=== PATIENT | female | born 1970 | race African-American/Black ===

== ENCOUNTER 2017-01-29 10:08 | Observation (INO) ==
[2017-01-29] MEDS ORDERED: HYDROmorphone 2 MG/1 ML VIAL IV STA (11:08)
[2017-01-29] MEDS ORDERED: ONDANSETRON 4 MG/2 ML VIAL IV STA (11:08)
[2017-01-29 11:14] LABS: Basophils % 0.4 % (0.0-0.8); Eosinophils # 0.2 10*3/uL (0.0-0.87); Eosinophils % 2.1 % (0.00-10.9); Hematocrit 36.3 VOL% (35.7-47.0); Hemoglobin 13.4 GM/DL (12.0-16.0); Immature Granulocytes % 0.3 %; Immature Granulocytes Absolute 0.02 #; Lymphocytes % 27.8 % (21.3-54.2); Mean Corpuscular HGB Conc 36.9 GM/DL (32-36); Mean Corpuscular Hemoglobin 34 PG (27-34); Mean Corpuscular Volume 92.8 FL (87-102); Mean Platelet Volume 11.4 FL (9.6-12.0); Monocytes # 0.4 10*3/uL (0.11-0.8); Monocytes % 6.2 % (1.7-12.7); Neutrophils # 4.5 10*3/uL (1.4-7.4); Neutrophils % 63.2 % (38.7-73.9); Platelet Count 279 T/CUMM (130-400); Red Blood Count 3.91 MC/CUMM (3.8-5.5); Red Cell Distribution Width 11.5 % (9.3-17.3); White Blood Count 7.1 T/CUMM (4-12)
[2017-01-29] MEDS ORDERED: ONDANSETRON 4 MG/2 ML VIAL ONE (11:17)
[2017-01-29] MEDS ORDERED: HYDROmorphone 2 MG/1 ML VIAL ONE (11:18)
[2017-01-29 11:27] LABS: Partial Thromboplastin Time 25.1 SECS (0-40)
[2017-01-29 11:40] LABS: Albumin 3.8 G/DL (3.4-5.0); Bilirubin,Total 0.6 MG/DL (0.2-1.0); Calcium 9.5 MG/DL (8.5-10.1); Osmolality,Calculated 285.4 MOS/KG (273-304); Potassium 3.7 MMOL/L (3.5-5.1); Total Protein 7.9 G/DL (6.4-8.3)
--- NOTE | 2017-01-29 11:45 | Emergency Department Note ---
Shawna Caldera Brittany, am scribing for, and in the presence of, Lillie Aguilar DO 11: 13. IJeff Debra, DO, personally performed the services described in this documentation, ascribed by Pily Matos in my presence, and it is both accurate and complete . Arrival - Arrival Chief Complaint: Abdominal / Flank Pain Stated Complaint: rt side pain/nausea ED Nursing Triage Note: Patient to triage with c/o right side pain with n/v. Patient states she was seen here Wednesday for the samething and it is getting worse. Mode of Arrival: Ambulatory Limitations: No Limitations Source: Patient - History of Present Illness HPI Narrative: This is a 47 y/o black female,who presents to the ED with c/o severe abdominal pain which started last week. She localizes the abdominal pain to the right upper and lower quadrants. She states she was seen last week here for the same complaints but the pain has now increased. She reports she had a CT of her abdominal at this time, which showed her appendix was inflamed. She notes the last time she ate was yesterday secondary to nausea and vomiting. She reports a subjective fever. Pt has no other complaints/pain in the ED at this time. Pt has a PMHx of HTN and NIDDM. Pt has had a hysterecotomy and cholecystectomy. PT denies a family medical Hx. Pt denies a social hx. Onset (ago): week(s) (Started last week) Consistency: constant Severity: severe, similar to previous episodes Allergies/Adverse Reactions: Allergies Allergy/AdvReac Type Severity Reaction Status Date / Time Sulfa (Sulfonamide Allergy ANAPHYLAXIS Verified 01/29/17 10:26 Antibiotics) Home Medications: Home Medications Medication Instructions Recorded Confirmed Type Amlodipine Besylate [Amlodipine 10 mg PO QAM 01/29/17 01/29/17 History Besylate] Ciprofloxacin HCl [Ciprofloxacin 500 mg PO BID 01/29/17 01/29/17 History Tab] Liraglutide [Victoza 2-Nacho] 0.6 mg SUBCUT QAM 01/29/17 01/29/17 History Tramadol HCl [Tramadol Tab] 50 mg PO TID PRN 01/29/17 01/29/17 History glipiZIDE [Glipizide] 10 mg PO BID 01/29/17 01/29/17 History metroNIDAZOLE TAB [Flagyl Cap/Tab] 500 mg PO TID 01/29/17 01/29/17 History Review of System - Review of System 12 point system: reviewed and no additional remarkable complaints except as stated - Review of System Constitutional: Present: fever (Subjective fever) Gastrointestinal: Present: abdominal pain, nausea, vomiting Medical,Surgical,& Family Hx - Medical History Cardio: History of: Hypertension Endocrine: History of: Diabetes Mellitus (NIDDM) - Surgical History Abdominal Surgeries: Surgical HX of: Cholecystectomy Reproductive Surgeries: Surgical HX of;: Hysterectomy - Social History Smoking Status: Never smoker Frequency of Alcohol Use: None Type of Drug Use: None Exam Vital Signs: Vital Signs Temperature 98.1 F 01/29/17 10:40 Pulse Rate 67 01/29/17 10:40 Respiratory Rate 18 01/29/17 10:40 Blood Pressure 158/103 01/29/17 10:40 O2 Sat by Pulse Oximetry 99 01/29/17 10:24 - General General appearance: alert, in no apparent distress - Head Head exam: Present: atraumatic, normocephalic, normal inspection - Eye Eye exam: Present: normal appearance, PERRL, EOMI. Absent: conjunctival injection, nystagmus - ENT ENT exam: Present: normal exam, mucous membranes moist - Neck Neck exam: Present: normal inspection, full ROM, trachea midline. Absent: tenderness - Chest Chest inspection: Present: normal inspection, symmetric chest wall rise. Absent : tenderness - Respiratory Respiratory exam: Present: normal lung sounds bilaterally. Absent: respiratory distress - Cardiovascular Cardiovascular exam: Present: regular rate, normal rhythm, normal heart sounds. Absent: murmur - Abdominal Exam Abdominal exam: Present: soft, tenderness, normal bowel sounds. Absent: distention (Severe right upper and lower quadrant tenderness), guarding, rebound , rigidity - Rectal Exam Rectal exam: Present: deferred - Extremities Exam Extremities exam: Present: normal inspection, full ROM, normal capillary refill. Absent: tenderness - Back Exam Back exam: Present: normal inspection, full ROM. Absent: tenderness, muscle spasm, rashes - Neurological Exam Neurological exam: Present: alert, oriented X3, CN II-XII intact - Psychiatric Psychiatric exam: Present: other (Tearful). Absent: normal affect, normal mood , depressed, agitated, anxious - Skin Skin exam: Present: warm, dry, intact, normal color. Absent: pallor, mottled Course Course Narrative: Spoke with hospitalist and they will admit patient who is stable at this time. Patient will be put on IV Cipro. Pain will be controlled. Results - Labs CBC & BMP: 01/29/17 10:56 01/29/17 10:56 Lab Results: I have reviewed the patients labs Labs: Laboratory Tests 01/29/17 10:56 WBC 7.1 RBC 3.91 Hgb 13.4 Hct 36.3 MCV 92.8 MCH 34 MCHC 36.9 H RDW 11.5 Plt Count 279 MPV 11.4 Neut % (Auto) 63.2 Lymph % (Auto) 27.8 [place] % (Auto) 6.2 Eos % (Auto) 2.1 Baso % (Auto) 0.4 Neut # (Auto) 4.5 Lymph # (Auto) 2.0 [place] # (Auto) 0.4 Eos # (Auto) 0.2 Baso # (Auto) 0.0 Immature Gran % 0.3 Nucleated RBC % 0.0 Immature Gran # 0.02 Nucleated RBCs # 0.00 Immature Plt Fraction 0.0 - Diagnostic Findings Procedure: CT Abdomen and Pelvis: report reviewed by me (. Slight worsening of epiploic appendagitis2. Mild diverticulitiosis 3. Prior cholecystectomy. ) Disposition Clinical Impression: Epiploic appendagitis Case discussed with: patient Disposition: Still a Patient Condition: Stable Time of Disposition: 14:20
--- NOTE | 2017-01-29 12:23 | CT Report ---
History is abdominal pain Comparison 01/25/2017 100 cc Omni 350 utilized No focal defects seen in the liver, spleen, pancreas, or adrenals. Several up to 1 cm hypodensities in the right kidney bilaterally. To be a mildly less dense than fluid however Hounsfield unit measurements are most consistent with tiny cysts as opposed to tiny angiomyolipomas. Patient is status post cholecystectomy No enlarged retroperitoneal nodes seen Bowel is unopacified There are mild diverticuli throughout the colon. Again seen is a round, 2.5 cm area of inflammation and fat density anterior to the right colon. This is slightly more pronounced than on the prior study. Pelvis: Appendix is normal in size. No significant free fluid or focal inflammatory changes are seen. Mild sigmoid diverticuli present. Impression: 1. Slight worsening of epiploic appendagitis 2. Mild diverticulosis 3. Prior cholecystectomy The CT exam was performed using one or more of the following dose reduction techniques: Automated exposure control, adjustment of the mA and/or kV according to patient size, or use of iterative reconstruction technique. PROCEDURE INTERPRETED AT [facility] DEPARTMENT OF RADIOLOGY Final Report Signed by: Dr. Veronique Spain
[2017-01-29] MEDS ORDERED: CIPROFLOXACIN INJ 400 MG in PREMIX 1 EACH IV STA (14:17)
[2017-01-29] MEDS ORDERED: CIPROFLOXACIN 400 MG/200 ML PREMIX IV ONE (14:21)
--- NOTE | 2017-01-29 14:45 | Hospitalist History & Physical ---
<Leonila Alvarez - Last Filed: 01/29/17 14:30> Assessment and Plan - Time spent with patient Time spent with patient: Greater than 30 minutes (1) Epiploic appendagitis Status: Acute Assessment and plan: No temperature, no elevation in WBC; no elevation in liver function panel. Admit for observation. Start IV hydration. IV antibiotics. Pain medications. Will discuss with Dr Goddard for further recommendations with care. Current Visit: Yes (2) Abdominal pain Status: Acute Assessment and plan: Right sided upper quadrant. Cholecystectomy (1999). Liver function results within normal. Abd CT shows slight worsening of epiploic appendagitis; mild diverticulosis; prior cholcystectomy. Admit for observation. repeat a.m. labs. start IV fluids and antibiotics. Current Visit: No History of Present Illness Chief complaint: abdominal pain History of present illness: Ms. Crane is a 47 year old black female with PMHx HTN, DM; presented to the ED for c/o severe abdominal pain since Wednesday. She verbalizes the pain is more right upper quadrant but generalized pain and soreness throughout abdomen. She verbalized nausea and vomited x1. She denies any blood in vomitus and no blood in last bowel movement. She presented to the ED on 01/25/17 for same pain without any relief. Denies shortness of breath, chest pain, fever, or chills. SHx: hysterectomy, cholecystectomy. She denies smoking, alcohol intake or drug use. ALLERGIC: Sulfa IN ED: CT Abd/pelvis: Slight worsening of epiploic appendagitis; mild diverticulosis; prior cholecystectomy. LABS: WBC 7.1; H&H 13.4 & 36.3; Electrolytes within normal range. Glucose 222. After discussion with Dr Harkins in the ED and Dr Goddard with [facility], it was agreed to admit for observation and further evaluation of abdominal pain. Home Medications Medication Instructions Recorded Confirmed Type Amlodipine Besylate [Amlodipine 10 mg PO QAM 01/29/17 01/29/17 History Besylate] Ciprofloxacin HCl [Ciprofloxacin 500 mg PO BID 01/29/17 01/29/17 History Tab] Liraglutide [Victoza 2-Nacho] 0.6 mg SUBCUT QAM 01/29/17 01/29/17 History Tramadol HCl [Tramadol Tab] 50 mg PO TID PRN 01/29/17 01/29/17 History glipiZIDE [Glipizide] 10 mg PO BID 01/29/17 01/29/17 History metroNIDAZOLE TAB [Flagyl Cap/Tab] 500 mg PO TID 01/29/17 01/29/17 History Allergies Allergy/AdvReac Type Severity Reaction Status Date / Time Sulfa (Sulfonamide Allergy ANAPHYLAXIS Verified 01/29/17 10:26 Antibiotics) Medical,Surgical,& Family Hx - Medical History Cardio: History of: Hypertension Endocrine: History of: Diabetes Mellitus (NIDDM) - Surgical History Abdominal Surgeries: Surgical HX of: Cholecystectomy Reproductive Surgeries: Surgical HX of;: Hysterectomy - Social History Smoking Status: Never smoker Frequency of Alcohol Use: None Type of Drug Use: None Marital Status: Single Lives With:: ruby lives with her Functional capacity: independent ambulation 12 point system: reviewed and no additional remarkable complaints except as stated Exam - Constitutional Vitals: Period Temp Pulse Resp BP Sys/Knight Pulse Ox Last 24 Hr 98.1 F-98.1 F 67-67 18-18 158-158/103-103 99 General appearance: normal weight, no acute distress - Head Head exam: Present: normal inspection - Eye Eye exam: Present: EOMI Pupils: Present: SHAYNA - Neck Neck exam: Present: normal inspection. Absent: thyromegaly - Respiratory Respiratory exam: Present: clear to auscultation bilaterally. Absent: rhonchi, stridor, wheezes - Cardiovascular Cardiovascular exam: Present: regular rate and rhythm - GI/Abdominal GI/Abdominal exam: Present: normal bowel sounds, tenderness (right sided), soft. Absent: guarding, rebound - Extremities Exam Extremities exam: Present: full ROM. Absent: edema - Psychiatric Psychiatric exam: Present: normal affect, normal mood. Absent: agitated, anxious - Skin Skin exam: Present: normal color, warm, dry Results - Labs CBC & BMP: 01/29/17 10:56 01/29/17 10:56 Lab Results: I have reviewed the past 24 hour labs - Diagnostic Findings Procedure: CT Abdomen and Pelvis: report reviewed by me (Slight worsening of epiploic appendagitis; mild diverticulosis; prior cholecystectomy) <Anara,Mikey - Last Filed: 01/29/17 15:14> History of Present Illness History of present illness: Ms. White is a 47 year old female Exam - Constitutional Vitals: Period Temp Pulse Resp BP Sys/Knight Pulse Ox Last 24 Hr 98.1 F-98.1 F 59-67 18-18 158-188/103-109 95-99 Results - Labs CBC & BMP: 01/29/17 10:56 01/29/17 10:56
[2017-01-29] MEDS ORDERED: DEXTROSE 50% 25 GM/50 ML VIAL IV PRN (14:56)
[2017-01-29] MEDS ORDERED: GLUCAGON 1 MG VIAL IM PRN (14:56)
[2017-01-29] MEDS ORDERED: SODIUM CHLORIDE 0.9% 1,000 ML IV SCH (15:00)
[2017-01-29] MEDS ORDERED: ACETAMINOPHEN 325 MG TABLET PO PRN (15:09)
[2017-01-29] MEDS ORDERED: SODIUM CHLORIDE 0.45% 1,000 ML IV SCH (15:30)
[2017-01-29] MEDS: MORPHINE 2 MG/1 ML SYRINGE IV PRN ×2 (17:53→21:55)
[2017-01-29] MEDS: ONDANSETRON 4 MG/2 ML VIAL IV PRN (17:59)
[2017-01-29] MEDS: INSULIN LISPRO 100 UNIT/ML SUBCUT SCH (18:00)
[2017-01-29 19:41] LABS: Apearance,Urine CLEAR (Clear); Bilirubin,Urine Negative (Negative); Blood, Urine Negative (Negative); Glucose,Urine (UA) 150 mg/dL (Negative); Hyaline Casts,Urine 1 /LPF (0-3); Ketones,Urine Negative (Negative); Nitrite,Urine Negative (Negative); Protein,Urine Negative; RBC,Urine <1 /HPF (0-4); Renal Epithelial Cells,Urine Occasional /HPF (<1); Squamous Epithelial Cell,Urine Occasional /HPF (0-10); Urine Color Straw (Yellow); Urine Specific Gravity 1.013 (1.001-1.035); Urine Urobilinogen < 2.0 EU/DL (0.2-1.0); WBC,Urine 2 /HPF (0-6)
[2017-01-29] MEDS: glipiZIDE 10 MG TABLET PO SCH (21:50)
[2017-01-30 05:19] LABS: Basophils % 0.3 % (0.0-0.8); Eosinophils # 0.3 10*3/uL (0.0-0.87); Eosinophils % 3.8 % (0.00-10.9); Hematocrit 33.8 VOL% (35.7-47.0); Hemoglobin 12.1 GM/DL (12.0-16.0); Immature Granulocytes % 0.1 %; Immature Granulocytes Absolute 0.01 #; Lymphocytes # 2.7 10*3/uL (1.4-4.0); Lymphocytes % 37.4 % (21.3-54.2); Mean Corpuscular HGB Conc 35.8 GM/DL (32-36); Mean Corpuscular Hemoglobin 34 PG (27-34); Mean Corpuscular Volume 93.6 FL (87-102); Mean Platelet Volume 11.5 FL (9.6-12.0); Monocytes # 0.5 10*3/uL (0.11-0.8); Monocytes % 7.1 % (1.7-12.7); Neutrophils # 3.7 10*3/uL (1.4-7.4); Neutrophils % 51.3 % (38.7-73.9); Platelet Count 271 T/CUMM (130-400); Red Blood Count 3.61 MC/CUMM (3.8-5.5); Red Cell Distribution Width 11.3 % (9.3-17.3); White Blood Count 7.3 T/CUMM (4-12)
[2017-01-30 05:31] LABS: Calcium 9.2 MG/DL (8.5-10.1); Magnesium 1.8 MG/DL (1.8-2.4); Osmolality,Calculated 278.3 MOS/KG (273-304); Potassium 3.6 MMOL/L (3.5-5.1)
[2017-01-30] MEDS: MORPHINE 2 MG/1 ML SYRINGE IV PRN ×3 (06:35→22:13)
[2017-01-30] MEDS: INSULIN LISPRO 100 UNIT/ML SUBCUT SCH ×2 (08:22→17:51)
[2017-01-30] MEDS: ONDANSETRON 4 MG/2 ML VIAL IV PRN (08:46)
[2017-01-30] MEDS: glipiZIDE 10 MG TABLET PO SCH ×2 (09:59→20:50)
[2017-01-30] MEDS: amLODIPine 10 MG TABLET PO SCH (09:59)
[2017-01-30] MEDS: PANTOPRAZOLE 40 MG TABLET PO SCH (10:00)
--- NOTE | 2017-01-30 16:21 | Hospitalist Progress Note ---
Hospitalist: Subjective Interval history: 47 year old black female with PMHx HTN, DM; presented to the ED for c/o severe abdominal pain. She was diagnosed with epiploic appendagitis based on CT abdomen findings. She has mild nausea, still has abdominal pain but she reports is better compared to last couple days. Exam - Constitutional Vitals: Period Temp Pulse Resp BP Sys/Knight Pulse Ox Last 24 Hr 97.4 F-98.4 F 67-75 16-20 115-128/69-83 94-98 Exam: General: No Acute Distress HEENT: Normocephalic, atraumatic, Extra ocular movements intact Neck: Supple, No JVD Chest: Clear to auscultation B/L CV: S1 + S2 audible without murmur, gallop or rub Abd: soft, mild right-sided tenderness, Non-distended, BS + Ext: No edema Skin: No purpura, bruising or rash Rheumatologic: No Joint deformities Neurologic: Strength 5/5 all extremities, no gross sensory deficits Results - Labs CBC & BMP: 01/30/17 02:56 01/30/17 02:56 - Impressions Epiploic appendagitis Status: Acute Assessment and plan: This is usually a benign condition. Continue IV hydration, as needed pain medication. Current Visit: Yes Essential hypertension Status: Chronic Assessment and plan: Controlled on Norvasc 10 mg continue Current Visit: Yes Diabetes mellitus type 2 Status: Chronic Assessment and plan: This is controlled on glipizide, she is taking her own Victoza as this is nonformulary Current Visit: Yes
[2017-01-30] MEDS ORDERED: GLUCAGON 1 MG VIAL IM PRN (16:23)
[2017-01-30] MEDS ORDERED: DEXTROSE 50% 25 GM/50 ML VIAL IV PRN (16:23)
[2017-01-31] MEDS: ONDANSETRON 4 MG/2 ML VIAL IV PRN (07:55)
[2017-01-31] MEDS: MORPHINE 2 MG/1 ML SYRINGE IV PRN (08:00)
[2017-01-31] MEDS: INSULIN LISPRO 100 UNIT/ML SUBCUT SCH ×2 (08:01→17:55)
[2017-01-31] MEDS: amLODIPine 10 MG TABLET PO SCH (09:06)
[2017-01-31] MEDS: PANTOPRAZOLE 40 MG TABLET PO SCH (09:06)
[2017-01-31] MEDS: glipiZIDE 10 MG TABLET PO SCH ×2 (09:06→21:21)
[2017-01-31] MEDS ORDERED: KETOROLAC 30 MG/1 ML VIAL IV ONE (10:48)
[2017-01-31] MEDS: KETOROLAC 15 MG/1 ML VIAL IV SCH ×3 (11:30→23:10)
--- NOTE | 2017-01-31 11:31 | Hospitalist Progress Note ---
Assessment and Plan - Time spent with patient Time spent with patient: Less than 30 minutes (1) Diabetes Status: Acute Assessment and plan: 47-year-old -[place] female with history of diabetes and hypertension admitted by the hospitalist service on 01/29/2017 with persistent abdominal pain associated with nausea due to epiploic appendicitis. This should resolve on its own without antibiotics. This usually responds well to a nonnarcotic anti- inflammatory like Toradol. She does has normal kidney function so will start scheduled doses of IV Toradol every 6 hours. She can continue to use the Zofran as needed as needed for the nausea. But this should improve as her pain improves. Her blood sugars are under control with current regimen. She did have a hemoglobin A1c of 8.7. Her blood pressures are under good control. We will go ahead and get diabetes educators to see her while she is here. If her pain is under control with the Toradol she can be DC'd home tomorrow with Zofran , Toradol, and [place] use as needed. Dr. Simmons will see and examine patient and further recommendations to follow. Current Visit: Yes (2) Nausea Status: Acute Current Visit: Yes (3) Abdominal pain Status: Acute Current Visit: No (4) Epiploic appendagitis Status: Acute Current Visit: No Hospitalist: Subjective Interval history: Patient states her pain may be somewhat better but she is continuing to have some nausea that will subside with Zofran prior to eating. She is taking [place] and morphine. Exam - Constitutional Vitals: Period Temp Pulse Resp BP Sys/Knight Pulse Ox Last 24 Hr 96.9 F-98.0 F 62-84 16-20 101-135/58-83 93-100 Exam: 47-year-old -[place] female, no acute distress, alert and oriented Chest clear CV regular rate and rhythm Abdomen soft, tender to palpation right flank, no peritoneal signs or rebound Extremities no edema Results - Labs CBC & BMP: 01/30/17 02:56 01/30/17 02:56 Lab Results: I have reviewed the past 24 hour labs
[2017-02-01] MEDS: KETOROLAC 15 MG/1 ML VIAL IV SCH ×2 (05:21→10:38)
[2017-02-01] MEDS: INSULIN LISPRO 100 UNIT/ML SUBCUT SCH (07:12)
[2017-02-01] MEDS: amLODIPine 10 MG TABLET PO SCH (08:12)
[2017-02-01] MEDS: glipiZIDE 10 MG TABLET PO SCH (08:12)
[2017-02-01] MEDS: PANTOPRAZOLE 40 MG TABLET PO SCH (08:12)
[2017-02-01] MEDS ORDERED: VICTOZA (Liraglutide) 0.6 MG SUBCUT SCH (09:00)
[2017-02-01 12:07] VITALS: BP 119/65
[2017-02-01] MEDS: ONDANSETRON 4 MG/2 ML VIAL IV PRN (12:30)
[2017-02-01] MEDS ORDERED: NAPROXEN 500 MG TABLET PO PRN (13:57)
--- NOTE | 2017-02-01 14:03 | Hospitalist Progress Note ---
Hospitalist: Subjective Interval history: 47 year old black female with PMHx HTN, DM; presented to the ED for c/o severe abdominal pain. She was diagnosed with epiploic appendagitis based on CT abdomen findings, which is mostly a benign condition and tends to resolve spontaneously. She was provided pain management while in the hospital, and her pain is under control with the combination of narcotics and NSAIDs. Her pain has improved significantly, she is tolerating diet. She has reached maximal hospital benefit and being discharged home in an improved and stable condition. Work excuse has been provided with 1 week off after discharge from the hospital. Prescriptions were also provided . She will continue to follow-up with her primary care physician in 7-10 days which I recommended to her. Total discharge time 20 minutes. Exam - Constitutional Vitals: Period Temp Pulse Resp BP Sys/Knight Pulse Ox Last 24 Hr 97.6 F-98.4 F 69-83 18-20 112-122/61-71 92-99 Results - Labs CBC & BMP: 01/30/17 02:56 01/30/17 02:56
--- NOTE | 2017-02-01 14:06 | Discharge Summary ---
Hospital Course - Hospital Course Hospital Course: 47 year old black female with PMHx HTN, DM; presented to the ED for c/o severe abdominal pain. She was diagnosed with epiploic appendagitis based on CT abdomen findings, which is mostly a benign condition and tends to resolve spontaneously. She was provided pain management while in the hospital, and her pain is under control with the combination of narcotics and NSAIDs. Her pain has improved significantly, she is tolerating diet. She has reached maximal hospital benefit and being discharged home in an improved and stable condition. Work excuse has been provided with 1 week off after discharge from the hospital. Prescriptions were also provided . She will continue to follow-up with her primary care physician in 7-10 days which I recommended to her. Total discharge time 20 minutes. - Time spent with patient Time with patient DS: Less than 30 minutes Discharge Plan - Discharge Data Condition at Discharge: Stable Discharge Diet: advance to your usual diet Activity: resume usual activities as tolerated Hygiene: no restrictions Weight Bearing at Discharge: full weight bearing Driving: no restrictions Contact your physician if you experience:: pain uncontrolled by pain medications - Discharge Medications New Naproxen [Naprosyn Tab] 500 mg PO BID PRN #14 tablet PRN Reason: Abdominal Pain Pantoprazole Tab [Protonix Tab] 40 mg PO DAILY #14 tablet HYDROcodone/ACETAMIN 7.5-325 [Erin 7.5-325] 1 tablet PO Q4H PRN #30 tablet PRN Reason: Pain Moderate (4-7) Continue Tramadol HCl [Tramadol Tab] 50 mg PO TID PRN PRN Reason: Pain glipiZIDE [Glipizide] 10 mg PO BID Liraglutide [Victoza 2-Nacho] 0.6 mg SUBCUT QAM Amlodipine Besylate 10 mg PO QAM Discontinued Ciprofloxacin HCl [Ciprofloxacin Tab] 500 mg PO BID metroNIDAZOLE TAB [Flagyl Cap/Tab] 500 mg PO TID - Follow Up or Referral - Forms/Instructions Exam - Constitutional Vitals: Period Temp Pulse Resp BP Sys/Knight Pulse Ox Last 24 Hr 97.6 F-98.4 F 69-83 18-20 112-122/61-71 92-99 Exam: General: No Acute Distress HEENT: Normocephalic, atraumatic, Extra ocular movements intact Neck: Supple, No JVD Chest: Clear to auscultation B/L CV: S1 + S2 audible without murmur, gallop or rub Abd: soft, NT, Non-distended, BS + Ext: No edema Skin: No purpura, bruising or rash Rheumatologic: No Joint deformities Neurologic: Strength 5/5 all extremities, no gross sensory deficits Discharge Results Labs on day of discharge: Labs from last 24 hours 02/01/17 02/01/17 01/31/17 10:46 07:07 15:52 POC Glucose 202 H 121 H 292 H DS: Provider Date of admission: 01/29/17 14:15 Primary care physician: . No PCP Attending physician on admission: Mikey Goddard MD Consults: 01/29/17 20:14 Consult to Dietitian [CONS] Routine Reason for Dietitian: Other Consult to Pastoral Services [CONS] Routine Comment: Pastoral Screen: Request Manager Strategic Visit Pastoral Screen Source of Request: Patient 01/31/17 11:35 Consult to Diabetes Center, Educator [CONS] Routine Reason for Needlemaker: Diabetes Education Discharging clinician: Juana Simmons MD
== END 2017-02-01 15:39 | disposition home or self-care (01) ==
LOC: N.EDINP 10:08 → N.ED 10:08 → SUATTDRO 14:15 → N.EDINP 14:53 → N.3E 15:04
PROVIDERS: ADMIT Internal Medicine; ATTEND Hospitalist

== ENCOUNTER 2018-11-16 11:49 | Observation (INO) ==
[2018-11-16 13:47] LABS: Basophils % 0.4 % (0.0-0.8); Eosinophils # 0.2 10*3/uL (0.0-0.87); Eosinophils % 2.2 % (0.00-10.9); Hematocrit 41.4 VOL% (35.7-47.0); Hemoglobin 14.2 GM/DL (12.0-16.0); Immature Granulocytes % 0.3 %; Immature Granulocytes Absolute 0.02 #; Lymphocytes # 3.2 10*3/uL (1.4-4.0); Lymphocytes % 43.8 % (21.3-54.2); Mean Corpuscular HGB Conc 34.3 GM/DL (32-36); Mean Platelet Volume 12.4 FL (9.6-12.0); Monocytes % 5.6 % (1.7-12.7); Neutrophils % 47.7 % (38.7-73.9); Platelet Count 240 T/CUMM (130-400); Red Blood Count 4.36 MC/CUMM (3.8-5.5); White Blood Count 7.3 T/CUMM (4-12)
[2018-11-16] MEDS ORDERED: ASPIRIN CHEW 81 MG TABLET PO STA (13:49)
[2018-11-16 14:01] LABS: Albumin 3.9 G/DL (3.4-5.0); Bilirubin,Total 0.5 MG/DL (0.2-1.0); Calcium 9.5 MG/DL (8.5-10.1); Osmolality,Calculated 287.1 MOS/KG (273-304); Total Protein 7.3 G/DL (6.4-8.3)
[2018-11-16 14:19] LABS: INR 0.9; PT Patient Result 10.3 SECS; Partial Thromboplastin Time 23.3 SECS (0-40)
[2018-11-16] MEDS ORDERED: ALUM/MAG/SIMETH/LIDO VISC 1:1 30 ML BOTTLE PO ONE (14:41)
[2018-11-16] MEDS ORDERED: ALUM/MAG/SIMETH/LIDO VISC 1:1 30 ML BOTTLE PO STA (14:44)
[2018-11-16] MEDS ORDERED: KETOROLAC 30 MG/1 ML VIAL IV STA (15:00)
[2018-11-16] MEDS ORDERED: amLODIPine 10 MG TABLET ONE (15:39)
[2018-11-16] MEDS ORDERED: amLODIPine 5 MG TABLET PO STA (15:40)
[2018-11-16] MEDS ORDERED: BISACODYL 5 MG TABLET PO PRN (15:50)
[2018-11-16] MEDS ORDERED: oxyCODONE/ACETAMINOPHEN 5-325 MG TABLET PO PRN (15:50)
[2018-11-16] MEDS ORDERED: INSULIN LISPRO 100 UNIT/ML SUBCUT ONE (15:50)
[2018-11-16] MEDS ORDERED: ONDANSETRON 4 MG/2 ML VIAL IV PRN (15:50)
[2018-11-16] MEDS ORDERED: POTASSIUM CHLORIDE 20 MEQ TABLET PO PRN ×2 (15:50)
[2018-11-16] MEDS ORDERED: MAGNESIUM SULF RIDER 4 GM in PREMIX 1 EACH IV PRN (15:50)
[2018-11-16] MEDS ORDERED: ACETAMINOPHEN 325 MG TABLET PO PRN (15:50)
[2018-11-16] MEDS ORDERED: MAGNESIUM SULF RIDER 2 GM in PREMIX 1 EACH IV PRN (15:50)
[2018-11-16 16:41] LABS: Barbiturates Screen,Urine Negative (Negative); Benzodiazepines Screen,Urine Negative (Negative); Cannabinoid Screen,Urine Negative (Negative); Opiate Screen,Urine Negative (Negative); Phencyclidine Screen,Urine Negative (Negative)
[2018-11-16 17:07] LABS: Risk Ratio 4.71; VLDL CHOLESTEROL 57.2 MG/DL
[2018-11-16] MEDS: MORPHINE 4 MG/1 ML VIAL IV PRN (18:09)
[2018-11-16] MEDS: CARVEDILOL 6.25 MG TABLET PO SCH (20:43)
[2018-11-16] MEDS: FAMOTIDINE 20 MG TABLET PO SCH (20:44)
[2018-11-16] MEDS: INSULIN LISPRO 100 UNIT/ML SUBCUT SCH (20:45)
[2018-11-16] MEDS ORDERED: ATORVASTATIN 20 MG TABLET PO SCH (21:00)
[2018-11-16] MEDS ORDERED: INSULIN GLARGINE 100 UNIT/ML SUBCUT SCH (21:00)
[2018-11-17 04:44] LABS: Basophils % 0.4 % (0.0-0.8); Eosinophils # 0.2 10*3/uL (0.0-0.87); Eosinophils % 3.1 % (0.00-10.9); Hematocrit 39.8 VOL% (35.7-47.0); Hemoglobin 13.8 GM/DL (12.0-16.0); Immature Granulocytes % 0.3 %; Immature Granulocytes Absolute 0.02 #; Lymphocytes # 3.6 10*3/uL (1.4-4.0); Lymphocytes % 46.4 % (21.3-54.2); Mean Corpuscular HGB Conc 34.7 GM/DL (32-36); Mean Corpuscular Volume 93.9 FL (87-102); Mean Platelet Volume 12.1 FL (9.6-12.0); Monocytes % 4.8 % (1.7-12.7); Platelet Count 234 T/CUMM (130-400); Red Blood Count 4.24 MC/CUMM (3.8-5.5); Red Cell Distribution Width 11.1 % (9.3-17.3); White Blood Count 7.7 T/CUMM (4-12)
[2018-11-17 05:20] LABS: Albumin 3.4 G/DL (3.4-5.0); Bilirubin,Total 0.6 MG/DL (0.2-1.0); Calcium 9.2 MG/DL (8.5-10.1); Osmolality,Calculated 285.5 MOS/KG (273-304); Total Protein 6.9 G/DL (6.4-8.3)
[2018-11-17] MEDS ORDERED: ASPIRIN EC 81 MG TABLET PO SCH (09:00)
[2018-11-17] MEDS ORDERED: amLODIPine 10 MG TABLET PO SCH (09:00)
[2018-11-17] MEDS: MORPHINE 4 MG/1 ML VIAL IV PRN (09:17)
[2018-11-17] MEDS: INSULIN LISPRO 100 UNIT/ML SUBCUT SCH ×3 (09:18→16:47)
[2018-11-17] MEDS ORDERED: POTASSIUM CHLORIDE RIDER 10 MEQ in PREMIX 1 EACH IV PRN ×2 (10:17→10:18)
[2018-11-17] MEDS ORDERED: MAGNESIUM SULF RIDER 2 GM in PREMIX 1 EACH IV PRN ×2 (10:17→10:18)
[2018-11-17] MEDS ORDERED: DIAZEPAM 5 MG TABLET PO ONE (10:18)
[2018-11-17] MEDS ORDERED: diphenhydrAMINE CAP 25 MG CAPSULE PO ONE (10:18)
[2018-11-17] MEDS ORDERED: methylPREDNISolone SOD SUC 125 MG/2 ML VIAL IV ONE (10:20)
[2018-11-17] MEDS ORDERED: SODIUM CHLORIDE 0.9% 1,000 ML IV SCH (10:30)
[2018-11-17] MEDS: CARVEDILOL 6.25 MG TABLET PO SCH (10:40)
[2018-11-17] MEDS: FAMOTIDINE 20 MG TABLET PO SCH (10:40)
[2018-11-17] MEDS ORDERED: OMEGA 3 ACID ETHYL ESTERS 1 GM CAPSULE PO SCH (11:00)
[2018-11-17] MEDS ORDERED: fentaNYL 100 MCG/2 ML VIAL ONE (11:01)
[2018-11-17] MEDS ORDERED: NITROGLYCERIN DRIP 50 MG/250 ML BOTTLE IV ONE (11:01)
[2018-11-17] MEDS ORDERED: MIDAZOLAM 2 MG/2 ML VIAL ONE (11:01)
[2018-11-17] MEDS ORDERED: LIDOCAINE 1% 20 ML VIAL ONE (11:01)
[2018-11-17] MEDS ORDERED: VERAPAMIL 5 MG/2 ML VIAL ONE (11:02)
[2018-11-17] MEDS ORDERED: ENOXAPARIN 30 MG/0.3 ML SYRINGE ONE (11:42)
[2018-11-17] MEDS ORDERED: GLUCAGON 1 MG VIAL IM PRN (11:45)
[2018-11-17] MEDS ORDERED: DEXTROSE 50% 25 GM/50 ML VIAL IV PRN (11:45)
[2018-11-17 17:48] VITALS: BP 103/85
[2018-11-17] MEDS ORDERED: ROSUVASTATIN 20 MG TABLET PO SCH (21:00)
[2018-11-17] MEDS ORDERED: ATORVASTATIN 40 MG TABLET PO SCH (21:00)
== END 2018-11-17 19:07 | disposition home or self-care (01) ==
LOC: N.EDINP 11:49 → N.ED 11:49 → N.EDINP 16:35 → N.5E 16:56
PROVIDERS: ADMIT Hospitalist; ATTEND Hospitalist
PROC: CLCCHCL (ICD-10-PCS; 2018-11-17 11:15)